=== PATIENT | female | born 1975 | race Caucasian/White ===

== ENCOUNTER → 2019-01-09 13:12 | Outpatient (CLI) | payer OTHER, SELFPAY ==
[2019-01-09 14:24] LABS: Hemoglobin A1C% w Est Avg Glu 5.5 % (4.0-6.0)
[2019-01-09 15:14] LABS: Cholesterol 168 mg/dL (140-199); HDL Cholesterol 34 mg/dL (40-60); LDL Cholesterol Calculated 96 mg/dL (<100); Triglycerides 192 mg/dL (35-150)
[2019-01-09 15:15] LABS: Thyroid Stimulating Hormone 1.11 uIU/mL (0.47-4.68)
== END ==
PROVIDERS: Visit Provider Nurse Practitioner Family
DX: E66.9 Obesity, unspecified (principal); Z13.220 Encounter for screening for lipoid disorders; Z13.29 Encounter for screening for other suspected endocrine disorder
CPT/HCPCS: 36415; 80061; 83036; 84439; 84443